=== PATIENT | male | born 1990 | race African-American/Black ===

== ENCOUNTER 2018-02-17 06:07 | Day surgery (SDC) | payer BC ==
[~2018-02-17] VITALS: Ht 190.5 cm; Wt 126.1 kg
[~2018-02-17 06:07] MED LIST: BACITRACIN 50,000 UNIT in IV NORMAL SALINE 500ML BAG 500 ML IRR ONE
[2018-02-17] MEDS ORDERED: BUPIVAC MPF-EPI 0.5%-1:200000 30 ML VIAL. ONE (06:44)
[2018-02-17] MEDS ORDERED: fentaNYL PF VIAL 100 MCG/2 ML VIAL IV PRN (07:00)
[2018-02-17] MEDS ORDERED: LIDOCAINE 1% PF 2 ML VIAL. ID PRN (07:00)
[2018-02-17] MEDS ORDERED: MORPHINE SULFATE 4 MG/ML VIAL. IV PRN (07:00)
[2018-02-17] MEDS ORDERED: PROCHLORPERAZINE 10 MG/2 ML VIAL. IV PRN (07:00)
[2018-02-17] MEDS ORDERED: HYDROmorphone 2 MG/ML VIAL IV PRN (07:00)
[2018-02-17] MEDS ORDERED: ONDANSETRON PF 4 MG/2 ML VIAL. IV PRN (07:00)
[2018-02-17] MEDS ORDERED: IV RINGERS,LACTATED 1000ML 1,000 ML IV SCH (07:00)
[2018-02-17] MEDS ORDERED: MIDAZOLAM HCL/PF 2 MG/2 ML VIAL. ONE (07:34)
[2018-02-17] MEDS ORDERED: fentaNYL PF VIAL 250 MCG/5 ML VIAL ONE (07:34)
[2018-02-17] MEDS ORDERED: ROCURONIUM 50 MG/5 ML VIAL. ONE (07:40)
[2018-02-17] MEDS ORDERED: PROPOFOL 20 ML IV ONE (08:12)
[2018-02-17] MEDS ORDERED: DEXAMETHASONE SOD PHOS 20 MG/5 ML VIAL. ONE (08:12)
[2018-02-17] MEDS ORDERED: SEVOFLURANE 61 TO 120 MINUTES. IH ONE (08:12)
[2018-02-17] MEDS ORDERED: LIDOCAINE 2% PF Vial for OR 5 ML VIAL. ONE (08:12)
[2018-02-17] MEDS ORDERED: ONDANSETRON PF 4 MG/2 ML VIAL. ONE (08:12)
[2018-02-17] MEDS ORDERED: NEOSTIGMINE 10 MG/10 ML VIAL. ONE (09:11)
[2018-02-17] MEDS ORDERED: GLYCOPYRROLATE 1 MG/5 ML VIAL. ONE (09:11)
--- NOTE | 2018-02-17 09:38 | PDOC4 ---
Operative Note Operative Note Operative Note: Preoperative Diagnosis: Large left inguinal hernia Postoperative Diagnosis: Same Procedure: Repair of large left inguinal hernia with mesh Surgeon: [employer] Setter: Ana MORA Anesthesia: Gen. EBL: 30 mL Specimen: Cord lipoma to pathology Drains: None Complications: None Indication: The patient is a 27-year-old male who is referred with a large left inguinal hernia. He was offered surgical repair. The details of surgery were discussed including the use of mesh. The risks were also noted which include bleeding, infection, pain, urinary retention, testicular ischemia, pain, recurrence, anesthetic risk, potential need for additional surgery or procedure. He understands and would like to proceed. Description: The patient was taken to the operating room and placed supine on the operating table. Gen. anesthesia was performed. The left groin was shaved and prepped with ChloraPrep and draped in a standard surgical manner. An incision was made in the left groin with a scalpel. Cautery dissection was carried down to the external oblique aponeurosis. The aponeurosis was opened down to the external ring. The contents of the inguinal canal were digitally mobilized and encircled with a Susan drain. There appeared to be a large amount of herniated contents extending into the scrotum. The hernia sac had to be opened which revealed a large amount of omentum extending through an indirect hernia sac. We were able to fully reduce the omentum back to the abdominal cavity. The large and redundant hernia sac was then divided and mobilized from the surrounding tissues. The vas deferens and other cord structures were identified and preserved. There was a moderate sized cord lipoma which was excised and sent to pathology. There was a small bleeding vessel near the cord structures which was suture ligated with 3-0 Vicryl. The hernia sac was then ligated with 2-0 Vicryl and fully reduced. The defect was filled with an extra large Phasix mesh plug. The plug was sutured around its periphery with 2-0 Vicryl. The entire inguinal floor was then reinforced with a Prolene keyhole mesh. The mesh was sutured inferiorly to the shelving edge of the inguinal ligament and superiorly to the internal oblique muscle and aponeurosis. A slit was made to accommodate cord structures. The external oblique was then closed over the mesh with 2-0 Vicryl. Subcutaneous tissue was approximated with 3-0 Vicryl. The skin was closed with 4-0 Monocryl. Steri- Strips and a sterile dressing were applied. The patient tolerated the procedure well and was sent to the recovery room in stable condition. At the end of the case all counts were correct. DEBBIE BALLARD MD Feb 17, 2018 09:38
--- NOTE | 2018-02-17 09:40 | DISCH ---
DISCHARGE INSTRUCTIONS Condition on Discharge Condition on Discharge: Stable Activity After Discharge Activity Instructions for Disc: Other, see below (no lifting over 20 lbs) Driving Instructions after Dis: Other, see below (no driving while taking pain meds) Diet after Discharge Diet after Discharge: Regular Wound Incision Care Wound/Incision Care: Other, see below (keep dressing clean and dry X 72 hours, may then remove and shower) Follow-Up Follow up with: Dr Ballard in 2 weeks in the office, call for appointment [phone] DEBBIE BALLARD MD Feb 17, 2018 09:40
[2018-02-17] MEDS ORDERED: fentaNYL PF VIAL 100 MCG/2 ML VIAL ONE ×2 (10:08→10:31)
[2018-02-17] MEDS: fentaNYL PF VIAL 100 MCG/2 ML VIAL IV PRN ×3 (10:10→10:32)
[2018-02-17] MEDS ORDERED: OXYC-325 PO (10:46)
[2018-02-17] MEDS ORDERED: oxyCODONE/APAP 5/325 1 TAB TABLET ONE (11:19)
[2018-02-17] MEDS ORDERED: oxyCODONE/APAP 5/325 1 TAB TABLET PO ONE (11:30)
[2018-02-17 11:48] VITALS: BP 139/75
--- NOTE | 2018-02-18 16:10 | PATHOLOGY ---
[facility] Accession Number: [id number] . 01 Material submitted: . LEFT INGUINAL CORD LIPOMA . 01 Clinical history: . Left inguinal hernia . 02 Diagnosis: Segment of fibroadipose tissue, left inguinal herniorrhaphy: - Consistent with lipoma of cord. (JPM:[facility] 02/18/2018) QTP/02/18/2018 . 02 Electronically signed: . Mat Mota MD, Pathologist NPI- [id number] . 01 Gross description: . The specimen is received in formalin, labeled "Marky Peters, left inguinal cord lipoma", is an irregular fragment of yellow lobulated adipose tissue partially covered by a thin cox-white membrane measuring 7.4 x 4.5 x 1.2 cm. Serially sectioned to show a glistening, yellow homogeneous cut surface with no discrete hemorrhage are necrosis. Coding Auditor tissue is submitted in A1-A3. (SWS; 02/17/2018) SHS/SHS . 02 Pathologist provided ICD-10: D17.6 . 02 CPT . 695787 Specimen Comment: A courtesy copy of this report has been sent to Specimen Comment: [phone], . Specimen Comment: Report sent to / DR SAGE Specimen Comment: A duplicate report has been generated due to demographic updates. Performed at: 01 [facility] [address], [place] [id number] MD Baldo Frederick MD Phone: [phone] Performed at: 02 [facility] [address], [place] [id number] MD Mat Mota MD Phone: [phone]
== END 2018-02-17 11:48 | disposition home or self-care (01) ==
LOC: SURG 06:07
PROVIDERS: ATTEND Surgery
DX: K40.90 Unilateral inguinal hernia, without obstruction or gangrene, not specified as recurrent (principal); D17.6 Benign lipomatous neoplasm of spermatic cord; Z98.890 Other specified postprocedural states; Z83.3 Family history of diabetes mellitus; Z72.89 Other problems related to lifestyle; E66.9 Obesity, unspecified; Z68.35 Body mass index [BMI] 35.0-35.9, adult; Z79.899 Other long term (current) drug therapy
CPT/HCPCS: 49505; C1781; J0690; J1100; J2001; J2250; J2405; J2704; J2710; J3010; J3490; J7040; J7120

== ENCOUNTER → 2020-04-26 | Outpatient (CLI) | payer BC, OTHER ==
[~2020-04-26] MED LIST changes: -BACITRACIN 50,000 UNIT in IV NORMAL SALINE 500ML BAG 500 ML IRR ONE; +OXYC-325 PO
--- NOTE | 2020-04-26 18:00 | RAD ---
Exam: CT head INDICATION: Head injury TECHNIQUE: Sequential axial images through the head were obtained without the administration of IV co ntrast. Comparisons: None FINDINGS: No focal parenchymal lesion or hemorrhage is identified. There is no midline shift or sulcal effaceme nt. No acute vascular territory infarction is identified. Mayer-white distinction is preserved. 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 The ventricular s ystem is within normal limits without compression hydrocephalus. The basal cisterns are well maintain ed. The visualized portions of the paranasal sinuses and mastoid air cells are well-pneumatized. No acute fractures. IMPRESSION: No acute traumatic intracranial abnormality. Chronic changes as described above. Exposure: One or more of the following in the visualized dose reduction techniques were utilized for this examination: 1. Automated exposure control 2. Adjustment of the MA and/or KV according to patient size Use of iterative of reconstructive technique Electronically signed by: Marietta Vogel MD (04/26/2020 5:58 PM) [facility]
== END ==
LOC: CT 17:16
PROVIDERS: ATTEND Preventive Medicine Occupational Medicine
DX: S09.90XA Unspecified injury of head, initial encounter (principal); X58.XXXA Exposure to other specified factors, initial encounter; Y93.89 Activity, other specified; Y92.89 Other specified places as the place of occurrence of the external cause; Y99.8 Other external cause status
CPT/HCPCS: 70450